=== PATIENT | male | born 1965 | race Two or more races ===

== ENCOUNTER 2016-12-19 03:56 | Emergency (ER) | payer SELFPAY ==
[~2016-12-19] VITALS: Ht 195.6 cm; Wt 208.7 kg
[2016-12-19] MEDS ORDERED: NALBUPHINE HCL 10 MG/1ml INJECTION IV ONE (04:30)
[2016-12-19] MEDS ORDERED: ONDANSETRON HCL 4 MG/2 ML VIAL IV ONE ×2 (04:30→12:45)
[2016-12-19] MEDS ORDERED: MORPHINE SULFATE 4 MG/ML SYRG IV ONE (12:45)
[2016-12-19 13:59] VITALS: BP 124/82
== END 2016-12-19 14:12 | disposition home or self-care (01) ==
LOC: ER 03:56 → EDBD 03:56 → ER 14:12
DX: S02.82XA Fracture of other specified skull and facial bones, left side, initial encounter for closed fracture (principal); E11.9 Type 2 diabetes mellitus without complications; I10 Essential (primary) hypertension; E66.01 Morbid (severe) obesity due to excess calories; Z68.43 Body mass index [BMI] 50.0-59.9, adult; Y08.89XA Assault by other specified means, initial encounter; Y93.89 Activity, other specified; Y99.8 Other external cause status; Y92.89 Other specified places as the place of occurrence of the external cause
CPT/HCPCS: 70450; 70486; 72125; 82962; 96374; 96375; 96376; 99285; J2270; J2300; J2405

== ENCOUNTER 2019-12-08 06:41 | Emergency (ER) | payer MEDICAID ==
[~2019-12-08] VITALS: Ht 195.6 cm; Wt 204.1 kg
[2019-12-08] MEDS ORDERED: PIPERACILLIN-TAZOB 3.375GM 100 ML IV ONE ×2 (08:45→18:15)
[2019-12-08] MEDS ORDERED: SODIUM CHLORIDE 0.9% 1,000 ML IV ONE ×2 (09:07)
[2019-12-08 09:41] LABS: Basophils # (auto) 0.1 10 ^3/uL (0-0.2); Eosinophils # (auto) 0.1 10 ^3/uL (0-0.8); Hematocrit 38.4 % (41.0-53.0); Hemoglobin 13.1 g/dL (13.5-17.5); Lymphocytes # (auto) 1.5 10 ^3/uL (0.4-5.4); Lymphocytes % (auto) 19.5 % (10.0-50.0); Mean Corpuscular Hemoglobin 32.6 pg (28.0-32.0); Mean Corpuscular Hgb Conc. 34.3 g/dL (32.0-36.0); Mean Corpuscular Volume 95.3 fL (80.0-100.0); Monocytes # (auto) 0.7 10 ^3/uL (0-1.3); Monocytes % (auto) 9.1 % (0.0-12.0); Neutrophils # (auto) 5.2 10 ^3/uL (1.6-8.6); Neutrophils % (auto) 69.4 % (37.0-80.0); Nucleated Red Blood Cells % 0.1 %; Platelet Count (auto) 400 10^3/uL (140-450); Red Blood Cells 4.03 10^6/uL (4.5-5.90); Red Cell Distribution Width 15.3 % (11.8-14.3); White Blood Cell 7.5 10^3/uL (4.4-10.8)
[2019-12-08 09:52] LABS: Albumin 2.4 g/dL (3.4-5.0); Calcium 8.4 mg/dL (8.5-10.1)
[2019-12-08 09:53] LABS: BUN/Creatinine Ratio 9.7
[2019-12-08 09:56] LABS: Bilirubin, Total 0.4 mg/dL (0.2-1.0); Total Protein 8.2 g/dL (6.4-8.2)
[2019-12-08 09:56] LABS: Lactic Acid w/Reflex 3.4 mmol/L (0.4-2.0)
[2019-12-08] MEDS ORDERED: KETOROLAC TROMETH 30 MG/ML 1ML VIAL IV ONE (10:15)
[2019-12-08 10:31] LABS: INR 1.09 (0.9-1.15); Partial Thromboplastin Time 27.3 sec (23.0-31.2)
[2019-12-08] MEDS ORDERED: ATOR10TA52 PO (13:11)
[2019-12-08] MEDS ORDERED: MET50T GT (13:11)
[2019-12-08] MEDS ORDERED: METF-370 PO (13:11)
[2019-12-08] MEDS ORDERED: NIFE1TAB31 PO (13:11)
[2019-12-08] MEDS ORDERED: LISI-648 PO (13:11)
[2019-12-08] MEDS ORDERED: CLINDAMYCIN 900MG IV 50 ML IV ONE (18:15)
[2019-12-08 20:15] VITALS: BP 118/82
== END 2019-12-08 20:57 | disposition home or self-care (01) ==
LOC: ER 06:41
DX: L03.317 Cellulitis of buttock (principal); L02.31 Cutaneous abscess of buttock; E44.0 Moderate protein-calorie malnutrition; R73.9 Hyperglycemia, unspecified
CPT/HCPCS: 36415; 71045; 80053; 83605; 85025; 85610; 85730; 87040; 96365; 96366; 96368; 96375; 99285; J1885; J2543; J3490

== ENCOUNTER → 2024-09-14 | Outpatient (CLI) | payer MEDICAID ==
[~2024-09-14] VITALS: Ht 195.6 cm; Wt 163.3 kg
[~2024-09-14] MED LIST: ASPI1TAB20 PO; ATOR10TA52 PO; ATOR20TA50 PO; CARV6.2551 PO; CYAN-17 PO; LISI10TA34 PO; MET50T GT; METF-370 PO; METF-929 PO; NIFE1TAB31 PO; OXY20CRT PO; SACU1TAB PO; SEMA2INJ3 SC; TEST1.62 TD; [UNRECOGNIZED DRUG - CODE] PO
[2024-09-14 14:01] LABS: Basophils # (auto) 0.1 10 ^3/uL (0-0.2); Eosinophils # (auto) 0.6 10 ^3/uL (0-0.8); Hematocrit 55.9 % (41.0-53.0)
[2024-09-14 14:03] LABS: Basophils % (auto) 0.8 % (0.0-2.0); Eosinophils % (auto) 6.8 % (0.0-7.0); Lymphocytes # (auto) 1.5 10 ^3/uL (0.4-5.4); Mean Corpuscular Hemoglobin 32.5 pg (28.0-32.0); Mean Corpuscular Hgb Conc. 33.9 g/dL (32.0-36.0); Mean Corpuscular Volume 95.7 fL (80.0-100.0); Monocytes # (auto) 0.5 10 ^3/uL (0-1.3); Monocytes % (auto) 6.1 % (0.0-12.0); Neutrophils % (auto) 69.3 % (37.0-80.0); Nucleated Red Blood Cells % 0.2 %; Platelet Count (auto) 263 10^3/uL (140-450); Red Blood Cells 5.84 10^6/uL (4.5-5.90); Red Cell Distribution Width 15.6 % (11.8-14.3); White Blood Cell 8.7 10^3/uL (4.4-10.8)
[2024-09-14 14:16] LABS: INR 1.19 (0.9-1.15); Partial Thromboplastin Time 29.3 SEC (24.5-34.5); Prothrombin Time 12.4 sec (9.3-11.8)
[2024-09-14 14:25] LABS: Alanine Aminotransferase 13 U/L (7-40); Albumin 4.6 g/dL (3.2-4.8); Alkaline Phosphatase 71 U/L (46-116); Anion Gap 10 (5-15); Aspartate Aminotransferase 14 U/L (13-40); BUN/Creatinine Ratio 10.2 (10.0-20.0); Bilirubin, Total 0.8 mg/dL (0.2-1.0); Blood Urea Nitrogen 13 mg/dL (9-23); Calcium 10.2 mg/dL (8.7-10.4); Carbon Dioxide 24 mmol/L (20-31); Chloride 104 mmol/L (98-107); Potassium 4.2 mmol/L (3.5-5.1); Sodium 138 mmol/L (136-145)
[2024-09-14 14:29] LABS: Glucose 137 mg/dL (74-106); Total Protein 8.4 g/dL (5.7-8.2)
[2024-09-15 14:17] LABS: Urine Bacteria None Seen /hpf (None Seen)
[2024-09-15 16:09] LABS: Urine Blood Negative /uL (Negative); Urine Clarity Clear (Clear); Urine Color Yellow (Yellow); Urine Protein, UAD Negative (Negative); Urine Specific Gravity 1.026 (1.001-1.035); Urine Squamous Epithelial Cell FEW /hpf (<5); Urine Urobilinogen Normal (Negative); Urine WBC 2 /HPF (0-3); Urine pH 5.5 (5.0-9.0)
== END | disposition home or self-care (01) ==
LOC: LAB 13:41 → EDSTATUS 09-19 12:30
PROVIDERS: ATTEND Surgery
DX: Z01.812 Encounter for preprocedural laboratory examination (principal); D48.5 Neoplasm of uncertain behavior of skin
CPT/HCPCS: 36415; 80053; 81001; 85025; 85610; 85730

== ENCOUNTER 2024-11-23 06:15 | Day surgery (SDC) | payer MEDICAID ==
[2024-11-21 13:59] LABS: Hematocrit 54.2 % (41.0-53.0); Hemoglobin 18.3 g/dL (13.5-17.5); Mean Corpuscular Hemoglobin 33.0 pg (28.0-32.0); Mean Corpuscular Volume 97.7 fL (80.0-100.0); Nucleated Red Blood Cells % 0.1 %; Urine Protein, UAD Negative (Negative)
[2024-11-21 14:14] LABS: INR 1.08 (0.9-1.15); Partial Thromboplastin Time 29.1 SEC (24.5-34.5); Prothrombin Time 11.4 sec (9.3-11.8)
[2024-11-21 14:23] LABS: Alanine Aminotransferase 12 U/L (7-40); Albumin 4.5 g/dL (3.2-4.8); Alkaline Phosphatase 57 U/L (46-116); Anion Gap 9 (5-15); BUN/Creatinine Ratio 17.1 (10.0-20.0); Bilirubin, Total 0.9 mg/dL (0.2-1.0); Blood Urea Nitrogen 19 mg/dL (9-23); Calcium 9.3 mg/dL (8.7-10.4); Carbon Dioxide 25 mmol/L (20-31); Chloride 104 mmol/L (98-107); Glucose 125 mg/dL (74-106); Potassium 4.3 mmol/L (3.5-5.1); Sodium 138 mmol/L (136-145); Total Protein 7.7 g/dL (5.7-8.2)
[~2024-11-23] VITALS: Ht 195.6 cm; Wt 163.3 kg
[~2024-11-23 06:15] MED LIST changes: -ATOR10TA52 PO; -LISI10TA34 PO; -MET50T GT; -METF-370 PO; -NIFE1TAB31 PO
[2024-11-23 06:21] VITALS: TEMP 98.1
[2024-11-23] MEDS ORDERED: fentaNYL CITRATE 100 MCG/2 ML VL ONE (06:53)
[2024-11-23] MEDS ORDERED: PHENYLEPHRINE HCL 10 MG/ML VL ONE (06:54)
[2024-11-23] MEDS: ceFAZolin 2 GM/D5W50ml 50 ML IV ONE (08:00)
[2024-11-23] MEDS ORDERED: HYDROmorphone HCL 2 MG/ML VL/or syr ONE (08:08)
[2024-11-23] MEDS ORDERED: POVIDONE IODINE 10 % TOPICAL OINT 30GM TOP ONE (08:23)
[2024-11-23] MEDS ORDERED: ONDANSETRON HCL 4 MG/2 ML VIAL ONE (08:25)
[2024-11-23] MEDS: BUPIVACAINE HCL 0.25% P/F 10 ML VIAL ONE (08:55)
[2024-11-23] MEDS: LIDOCAINE W/ EPINEPHRINE 1% 20ML VIAL ONE (08:55)
[2024-11-23 09:01] VITALS: PULSE 72; RESP 15; O2SAT 91
[2024-11-23] MEDS ORDERED: CEPH250C PO (09:02)
[2024-11-23 09:10] VITALS: PULSE 80; RESP 12; O2SAT 96
[2024-11-23] MEDS ORDERED: ACETAMINOPHEN IV 1000 MG/100ML (10MG/ML) IV PRN (09:15)
[2024-11-23] MEDS ORDERED: MEPERIDINE HCL (25 MG/ML) 1ML VIAL IV PRN (09:15)
[2024-11-23] MEDS ORDERED: ONDANSETRON HCL 4 MG/2 ML VIAL IV ONE (09:15)
[2024-11-23] MEDS ORDERED: hydrALAZINE HCL 20 MG/ML VL IV PRN (09:15)
[2024-11-23] MEDS ORDERED: HYDROmorphone HCL 2 MG/ML VL/or syr IV PRN (09:15)
[2024-11-23 09:25] VITALS: PULSE 66; RESP 14; O2SAT 95
--- NOTE | 2024-11-23 09:33 | DVHOP2 ---
Operative Report - 2 Report Details Date: 11/23/24 Preop Diagnosis: multiple cysts abdomen and waist line Postop Diagnosis: multiple cysts Surgeon: Dr. Brenden Saleem, Ramona Simmons Anesthesiologist: Dr. Irwin Anesthesia: Mac Consent: The patient was informed of the risks and benefits of the procedure. These include but are not limited to complications of anesthesia, postoperative infection, incomplete relief of symptoms, recurrence of symptoms, damage to blood vessels, nerves and tendons, deep venous thrombosis, pulmonary embolism and possible need for repeat surgery in the future. Name of Procedure Performed excision of right abdominal cyst and bilateral waist line cysts Procedure Details Procedure Details: under the supervision of Dr. Saleem and under adequate anesthesia the patient was placed in a left lateral position. The right side of abdomen was taped, prepped and draped in a sterile fashion. Before the incision the area was infiltrated with 1:1 0.25% Marcaine with epi and 1% lidocaine. An elliptical incision was made and the cyst was removed in it entirety. The area was than irrigated with normal saline and closure was accomplished with Prolene sutures. The patient drapes were removed and patient was placed in a supine position. The waist line was prepped and draped in a sterile fashion. I was able to expel purulent drainage from both sites and cultures were obtained. The two sites right and left waist line were infiltrated with 1:1 0.25% Marcaine with epi and 1% lidocaine. an elliptical incision was made first around the right cyst followed by the left to remove the cysts in its entirety. Both OpSite wounds were closed with Prolene sutures and dressing were applied to all wound sites. The sponge, blade and needle counts were correct. Patient was transferred to recovery without incident. Specimen: right abdominal cist waist line bilateral cysts Condition Good Disposition Home RAMONA SIMMONS [employer] Nov 23, 2024 09:32
[2024-11-23 09:46] VITALS: BP 114/49; PULSE 57; RESP 12; O2SAT 94
== END 2024-11-23 10:05 | disposition home or self-care (01) ==
LOC: SUR 06:15
PROVIDERS: ATTEND Surgery
DX: L72.0 Epidermal cyst (principal); I10 Essential (primary) hypertension; E11.9 Type 2 diabetes mellitus without complications; I48.91 Unspecified atrial fibrillation; Z79.899 Other long term (current) drug therapy; Z79.84 Long term (current) use of oral hypoglycemic drugs; Z98.890 Other specified postprocedural states; E66.9 Obesity, unspecified; Z68.43 Body mass index [BMI] 50.0-59.9, adult; L08.89 Other specified local infections of the skin and subcutaneous tissue
CPT/HCPCS: 11402; 11404; 36415; 80053; 81001; 82962; 85025; 85610; 85730; 87070; 87075; 87077; 87186; 87205; 88305; J0690; J1171; J2371; J2405; J3010; J3490; J7030